=== PATIENT | male | born 1955 | race Caucasian/White ===

== ENCOUNTER 2017-08-12 13:19 | Emergency (ER) | payer SELFPAY, OTHER | END 2017-08-12 17:58 | disposition home or self-care (01) | LOC: FTE 13:19 | DX: S20.219A Contusion of unspecified front wall of thorax, initial encounter (principal); S30.0XXA Contusion of lower back and pelvis, initial encounter; R07.9 Chest pain, unspecified; V59.49XA Driver of pick-up truck or van injured in collision with other motor vehicles in traffic accident, initial encounter | CPT/HCPCS: 71020; 72072; 93005; 99284-25 ==